=== PATIENT | female | born 1990 | race African-American/Black ===

== ENCOUNTER 2017-07-04 10:00 | Emergency (ER) | payer SELFPAY ==
[2017-07-04 10:08] VITALS: BP 120/90
--- NOTE | 2017-07-04 10:58 | ER Document Report ---
HPI - HPI Patient complains to provider of: cough, cold sx Onset: Last week Onset/Duration: Gradual Pain Level: 3 Context: 26 yo non smoker c/o cough, sore throat, myalgias for a week. No sob or chest pain. No n/v/d. Associated Symptoms: None Exacerbated by: Denies Relieved by: Denies Similar symptoms previously: Yes Recently seen / treated by doctor: No - ROS ROS below otherwise negative: Yes Systems Reviewed and Negative: Yes All other systems reviewed and negative - REPRODUCTIVE Reproductive: DENIES: : Past Medical History - General Information source: Patient - Social History Smoking Status: Never Smoker Frequency of alcohol use: None Drug Abuse: None Lives with: Family Family History: Reviewed & Not Pertinent Pulmonary Medical History: Reports: Hx Pneumonia Surgical Hx: Negative - Immunizations Hx Diphtheria, Pertussis, Tetanus Vaccination: Yes Vertical Provider Document - CONSTITUTIONAL Agree With Documented VS: Yes Exam Limitations: No Limitations General Appearance: No Apparent Distress - INFECTION CONTROL TRAVEL OUTSIDE OF THE [place] IN LAST 30 DAYS: No - HEENT HEENT: Normocephalic, Pharyngeal Erythema. negative: Conjuctival Injection, Tympanic Membrane Red - NECK Neck: Supple - RESPIRATORY Respiratory: Breath Sounds Normal, No Respiratory Distress O2 Sat by Pulse Oximetry: 100 - CARDIOVASCULAR Cardiovascular: Regular Rate, Regular Rhythm - GI/ABDOMEN Gastrointestinal: Abdomen Soft, Abdomen Non-Tender, No Organomegaly, Normal Bowel Sounds - MUSCULOSKELETAL/EXTREMETIES Musculoskeletal/Extremeties: MAEW, FROM - NEURO Level of Consciousness: Awake, Alert - DERM Integumentary: Warm, Dry, No Rash Course - Vital Signs Vital signs: Temp Pulse Resp BP Pulse Ox 98.8 F 87 16 120/90 H 100 07/04/17 10:07 07/04/17 10:07 07/04/17 10:07 07/04/17 10:07 07/04/17 10:07 Discharge - Discharge Clinical Impression: Normal exam, mild upper respiratory infection Condition: Good Disposition: HOME, SELF-CARE Instructions: Acetaminophen, Use of Ubcv-Ayw-Fkcejfe Ibuprofen ([facility]), Upper Respiratory Illness ([facility]) Additional Instructions: Plenty of fluids Rest Tylenol Motrin Return to the emergency room if any worsening of symptoms Forms: Return to Work
== END 2017-07-04 11:40 | disposition home or self-care (01) ==
LOC: ER 10:00
DX: J06.9 Acute upper respiratory infection, unspecified (principal); M79.1 Myalgia
CPT/HCPCS: 99283

== ENCOUNTER 2019-08-26 01:45 | Emergency (ER) | payer SELFPAY ==
[2019-08-26] MEDS ORDERED: ACETAMINOPHEN 325 MG TABLET PO ONE (02:00)
--- NOTE | 2019-08-26 04:07 | ER Document Report ---
ED Wound - General Chief Complaint: Laceration Stated Complaint: FALL/LIP LACERATION Time Seen by Provider: 08/26/19 04:07 Notes: CHIEF COMPLAINT: Lower lip laceration HPI: 28-year-old female presenting to the emergency department complaining of a laceration to the inner aspect of the lower lip on the right side. She was going up stairs when she tripped and fell striking her mouth on the stairs. She states she is up-to-date on her tetanus vaccination. Denies dental injury. Denies headache neck pain or other injury or complaint ROS: See HPI - all other systems were reviewed and are otherwise negative Constitutional: no fever Eyes: no drainage, no blurred vision ENT: no runny nose, no sore throat, positive lip laceration Integumentary: no rash MEDICATIONS: I agree with the patient medications as charted by the RN. ALLERGIES: I agree with the allergies as charted by the RN. PAST MEDICAL HISTORY/PAST SURGICAL HISTORY: Reviewed and agree as charted by RN. SOCIAL HISTORY: Reviewed and agree as charted by RN. FAMILY HISTORY: No significant familial comorbid conditions directly related to patient complaint EXAM: Reviewed vital signs as charted by RN. CONSTITUTIONAL: Alert and oriented and responds appropriately to questions. Well-appearing; well-nourished HEAD: Normocephalic; atraumatic EYES: PERRL; Conjunctivae clear, sclerae non-icteric ENT: normal nose; no rhinorrhea; moist mucous membranes; pharynx without lesions noted, no uvula edema or deviation, no tonsillar hypertrophy, phonation normal. Dentition is intact. No mandibular pain, no trismus. Patient with a 1.5 cm slightly gaping laceration on the inner aspect of the right lower lip with soft tissue swelling present. The laceration does not involve the vermilion border, is not through and through NECK: Supple without meningismus; non-tender; no cervical lymphadenopathy, no masses CARD: Capillary refill less than 3 seconds RESP: Normal chest excursion without splinting or tachypnea ABD/GI: non-distended BACK: The back appears normal and is non-tender to palpation EXT: Normal ROM in all joints; no cyanosis, no effusions, no edema SKIN: Normal color for age and race; warm; dry; good turgor NEURO: Moves all extremities equally; Motor and sensory function intact PSYCH: The patient's mood and manner are appropriate. Grooming and personal hygiene are appropriate. MDM: 28-year-old female with a laceration on the inner aspect of the lower lip on the right side that does gape. Will place 2 sutures in the wound to close the wound. Oral antibiotics TRAVEL OUTSIDE OF THE [place] 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 Past Medical History - Social History Smoking Status: Never Smoker Family History: Reviewed & Not Pertinent Patient has suicidal ideation: No Patient has homicidal ideation: No Pulmonary Medical History: Reports: Hx Pneumonia Renal/ Medical History: Denies: Hx Peritoneal Dialysis - Immunizations Hx Diphtheria, Pertussis, Tetanus Vaccination: Yes Physical Exam - Vital signs Vitals: Temp Pulse Resp BP Pulse Ox 98.4 F 91 16 123/85 100 08/26/19 01:53 08/26/19 01:53 08/26/19 01:53 08/26/19 01:53 08/26/19 01:53 Course - Vital Signs Vital signs: Temp Pulse Resp BP Pulse Ox 98.4 F 91 16 123/85 100 08/26/19 01:53 08/26/19 01:53 08/26/19 01:53 08/26/19 01:53 08/26/19 01:53 Procedures - Laceration/Wound Repair Right Lower Face Time completed: 04:31 Wound length (cm): 1.5 Wound's Depth, Shape: Linear, Contused tissue Laceration pre-procedure: Sterile PPE donned, Other - saline Anesthetic type: 1% Lidocaine w/epi Volume Anesthetic (mLs): 1 Wound explored: Clean Irrigated w/ Saline (mLs): 50 Wound Repaired With: Sutures Suture Size/Type: 5:0, Vicryl Number of Sutures: 2 Layer Closure?: No Post-procedure NV exam normal: Yes Discharge - Discharge Clinical Impression: Fall (on) (from) other stairs and steps, initial encounter Laceration of lower lip Qualifiers: Encounter type: initial encounter Qualified Code(s): S01.511A - Laceration without foreign body of lip, initial encounter Condition: Stable Disposition: HOME, SELF-CARE Additional Instructions: Take the antibiotics as prescribed, Motrin or Tylenol for pain. Salt water rinse after eating or drinking. Sutures will dissolve over 7 to 10 days. Return for significant swelling redness or discharge Prescriptions: Amoxicillin Trihydrate [Amoxil 500 mg Capsule] 500 mg PO TID #15 cap Referrals: SHEBA RICHMOND MD [ACTIVE STAFF] - Follow up as needed
[2019-08-26] MEDS ORDERED: LIDOCAINE 1%/EPINEPHRINE INJ 20 ML VIAL INJ ONE (04:14)
[2019-08-26] MEDS ORDERED: AMOXICILLIN TRIHYDRATE 500 MG CAPSULE PO ONE (04:30)
[2019-08-26 04:54] VITALS: BP 125/78
== END 2019-08-26 04:54 | disposition home or self-care (01) ==
LOC: ER 01:45
DX: S01.511A Laceration without foreign body of lip, initial encounter (principal); W10.8XXA Fall (on) (from) other stairs and steps, initial encounter; Z79.899 Other long term (current) drug therapy
CPT/HCPCS: 40830; J3490; 99282